=== PATIENT | male | born 1980 | race Caucasian/White ===

== ENCOUNTER 2016-06-30 10:27 | Emergency (ER) | payer SELFPAY ==
[2016-06-30 10:50] VITALS: BP 136/65
[2016-06-30] MEDS ORDERED: DEXAMETHASONE SOD PHOS 20 MG/5 ML VIAL. IM ONE (11:30)
--- NOTE | 2016-06-30 11:34 | PHYS DOC ---
Past Medical History Past Medical History: No Pertinent History Past Surgical History: No Surgical History Smoking: Less than 1pk/day Alcohol Use: Occasionally Drug Use: Marijuana Adult General Chief Complaint Chief Complaint: SKIN PROBLEM HPI HPI Patient is a 36 year old male who presents with diffuse itchy rash for one week. He denies any change in household products or medications changes. There are no other household members with similar rash. He has not had fever, dyspnea , or angioedema with the rash. He tried taking some Benadryl without relief of the itching. He does not have a PCP. Review of Systems Review of Systems Constitutional: Denies fever or chills. [] Eyes: Denies change in visual acuity, redness, or eye pain. [] HENT: Denies ear pain, nasal congestion or sore throat. Denies angioedema. Respiratory: Denies cough or shortness of breath. [] Musculoskeletal: Denies back pain or joint pain. [] Integument: Reports pruritic rash. Neurologic: Denies headache, focal weakness or sensory changes. [] All systems reviewed and negative unless otherwise stated in the HPI. Current Medications Current Medications Current Medications Medications (Trade) Dose Ordered Sig/Rhina Start Time Stop Time Status Last Admin Dose Admin Dexamethasone Sodium Phosphate (Decadron) 10 mg 1X ONCE 06/30/16 11:30 06/30/16 11:31 UNV Allergies Allergies Allergies Coded Allergies Type Severity Reaction Last Updated Verified No Known Drug Allergies 05/09/14 No Physical Exam Physical Exam Constitutional: Well developed, well nourished, no acute distress, non-toxic appearance. [] HENT: Normocephalic, atraumatic, oropharynx moist. [] Eyes: PERRLA, EOMI, conjunctiva normal, no discharge. [] Neck: Normal range of motion, no tenderness, supple, no stridor. [] Skin: Warm, dry, no erythema. There is a fine papular, erythematous rash scattered over the body without linear pattern to suggest scabies or surrounding erythema to suggest bedbugs or other insect bites. There is no urticaria. Back: No midline tenderness, no CVA tenderness. [] Extremities: No tenderness, ROM intact, no edema. Distal pulses equal bilaterally. [] Neurologic: Alert and oriented X 3, normal motor function, normal sensory function, no focal deficits noted. [] Psychologic: Affect normal, judgement normal, mood normal. [] EKG EKG [] Radiology/Procedures Radiology/Procedures [] Course & Med Decision Making Course & Med Decision Making Pertinent Labs and Imaging studies reviewed. (See chart for details) Patient presents with nonspecific itchy rash for one week. He is treated with IM Decadron in the emergency department. He is instructed to continue Benadryl as needed for itching. He is given contact information for dermatology for follow-up. Return precautions were discussed. He verbalizes understanding and agrees with plan. Dragon Disclaimer Dragon Disclaimer This electronic medical record was generated, in whole or in part, using a voice recognition dictation system. Departure Departure Impression: Primary Impression: Rash Disposition: HOME, SELF-CARE Condition: STABLE Referrals: WILMAR PARIKH MD Patient Instructions: Rash, [id number] Additional Instructions: You were seen today for rash. Rash does not appear to be due to a concerning cause, however we are unsure what has caused your rash. You were treated with a shot of steroids in the emergency department. You may continue to take Benadryl as needed for itching. Use according to package directions. Please follow-up with the power generation technician listed below if your rash continues. Return to emergency department if you have any new or concerning symptoms. SENTHIL DAS Jun 30, 2016 11:34
== END 2016-06-30 11:56 | disposition home or self-care (01) ==
LOC: ER 10:30
DX: R21 Rash and other nonspecific skin eruption (principal); F12.90 Cannabis use, unspecified, uncomplicated; F17.200 Nicotine dependence, unspecified, uncomplicated
CPT/HCPCS: 96372; 99283; J1100

== ENCOUNTER 2016-07-03 17:10 | Emergency (ER) | payer SELFPAY ==
[~2016-07-03] VITALS: Ht 182.9 cm; Wt 86.2 kg
[2016-07-03 17:39] VITALS: BP 136/76
[2016-07-03] MEDS ORDERED: PERM60CR11 TP (17:48)
--- NOTE | 2016-07-03 17:48 | PHYS DOC ---
Past Medical History Past Medical History: No Pertinent History Past Surgical History: No Surgical History Smokin Pack Per Day Alcohol Use: Occasionally Drug Use: Marijuana Adult General Chief Complaint Chief Complaint: SKIN PROBLEM HPI HPI Patient is a 36 year old male who presents with itchy rash for 2 weeks. Patient was seen here one week ago and treated with IM steroids for his rash. Reports that it improved for the first 2-3 days and then returned and is itching again. Benadryl is not helping with the itching. No other household members have similar rash, however his mother expressed concern for scabies. He has not changed any household products or started any new medications other than the steroid injection received in the emergency department. He does not have a PCP. Review of Systems Review of Systems Constitutional: Denies fever or chills. [] Eyes: Denies change in visual acuity, redness, or eye pain. [] Musculoskeletal: Denies back pain or joint pain. [] Integument: Reports pruritic rash. Neurologic: Denies headache, focal weakness or sensory changes. [] Allergies Allergies Allergies Coded Allergies Type Severity Reaction Last Updated Verified No Known Drug Allergies 05/09/14 No Physical Exam Physical Exam Constitutional: Well developed, well nourished, no acute distress, non-toxic appearance. [] HENT: Normocephalic, atraumatic, oropharynx moist. [] Eyes: PERRLA, EOMI, conjunctiva normal, no discharge. [] Skin: Warm, dry. There is a fine, papular rash with erythematous lesions scattered mainly over the trunk and abdomen with scattered spots on the extremities. Back: No midline tenderness, no CVA tenderness. [] Extremities: No tenderness, ROM intact, no edema. Distal pulses equal bilaterally. [] Neurologic: Alert and oriented X 3, normal motor function, normal sensory function, no focal deficits noted. [] Psychologic: Affect normal, judgement normal, mood normal. [] EKG EKG [] Radiology/Procedures Radiology/Procedures [] Course & Med Decision Making Course & Med Decision Making Pertinent Labs and Imaging studies reviewed. (See chart for details) [] Dragon Disclaimer Dragon Disclaimer This electronic medical record was generated, in whole or in part, using a voice recognition dictation system. Departure Departure Impression: Primary Impression: Scabies Disposition: 01 HOME, SELF-CARE Condition: STABLE Referrals: WILMAR PARIKH MD Patient Instructions: Scabies Additional Instructions: Your rash may be caused by scabies. Please apply the prescribed cream from the neck down and allow to remain on the skin for 8-12 hours. While the cream is on your skin, please wash all of your linens in hot water. The best treatment includes treatment of all household members at the same time to ensure complete treatment. Please follow up with the forging machine hand listed below if your rash continues. Scripts Permethrin (Elimite)60 Gm Cream..g.60 Gm TP ONCE #60 Prov:SENTHIL DAS 07/03/16 SENTHIL DAS Jul 03, 2016 17:48
== END 2016-07-03 17:57 | disposition home or self-care (01) ==
LOC: ER 17:10
DX: B86 Scabies (principal); F17.200 Nicotine dependence, unspecified, uncomplicated; F12.10 Cannabis abuse, uncomplicated
CPT/HCPCS: 99282